=== PATIENT | female | born 1950 | race Caucasian/White ===

== ENCOUNTER 2020-06-16 09:00 | Day surgery (SDC) | payer OTHER ==
[~2020-06-16 09:00] MED LIST: CHOL10002 PO; HYDCHL12.5 PO; [UNRECOGNIZED DRUG - OTHER] PO
== END 2020-06-16 22:50 | disposition home or self-care (01) ==
LOC: MOI US 09:00 → MOI MAM 09:30 → MOI US 22:50
DX: C50.812 Malignant neoplasm of overlapping sites of left female breast (principal); Z79.899 Other long term (current) drug therapy
CPT/HCPCS: 19281

== ENCOUNTER 2020-06-20 08:46 | Day surgery (SDC) | payer OTHER ==
[~2020-06-20] VITALS: Ht 167.6 cm; Wt 59.4 kg
--- NOTE | 2020-06-20 11:20 | NUR ---
06/20/20 1120 Hoda Pretty UNABLE TO COMPLETE IRAIS PARTIAL MASTECTOMY. THE WAND FOR THE IRAIS UPPER INSPECTOR DID NOT RESOPND TO THE IRAIS UPPER INSPECTOR. C-ARM WAS BROUGHT INTO THE OR AND UPPER INSPECTOR WAS FOUND BUT NOT ENOUGH INFORMATION WAS PROVIDED FOR US TO SAFELY PROCEDE WTIH THE CASE.
== END 2020-06-20 12:35 | disposition home or self-care (01) ==
LOC: ORSCSDS 08:46 → NM 09:00 → ORSCSDS 09:00 → RAD 10:30 → ORSCSDS 12:35
PROVIDERS: Surgery
PROC: 07B60ZX Excision of Left Axillary Lymphatic, Open Approach, Diagnostic (ICD-10-PCS; principal; 2020-06-20 10:30)
DX: C50.812 Malignant neoplasm of overlapping sites of left female breast (principal); D36.0 Benign neoplasm of lymph nodes; I10 Essential (primary) hypertension; F17.210 Nicotine dependence, cigarettes, uncomplicated
CPT/HCPCS: 38792; 88307; 88342; A9520; J0690; J1100; J1885; J2250; J2370; J2405; J2704; J3010; J7120; Q9968

== ENCOUNTER 2020-06-28 10:01 | Day surgery (SDC) | payer OTHER | END 2020-06-28 22:59 | disposition home or self-care (01) | LOC: MOI MAM 10:01 → RAD 06-30 08:00 → MOI US 06-30 08:45 | DX: C50.812 Malignant neoplasm of overlapping sites of left female breast (principal) | CPT/HCPCS: 19281 ==